=== PATIENT | female | born 1935 | race African-American/Black ===

== ENCOUNTER 2018-09-09 14:02 | Inpatient (IN) | payer MEDICARE, MEDICAID ==
[~2018-09-09] VITALS: Ht 167.6 cm; Wt 69.9 kg
[~2018-09-09 14:02] MED LIST: AMLO5TAB4 PO; CALC-1042 PO; CHOL100044 PO; FERR325T6 PO; IMAT100T2 PO; MEMA10TA2 PO
[2018-09-09 15:34] LABS: CHLORIDE 107 mEq/L (98-107)
[2018-09-09 16:22] LABS: BASOPHILS % 1.2 % (0.0-2.0); EOSINOPHILS % 1.5 % (0.0-5.0); HEMATOCRIT. 41.7 % (36.0-48.0); HEMOGLOBIN. 13.7 g/dL (12.0-16.0); LYMPHOCYTES % 17.9 % (20.0-50.0); MEAN CORPUSCULAR HEMOGLOBIN 29.8 pg (28.0-32.0); MONOCYTES % 14.3 % (2.0-8.0); NEUTROPHILS % 65.1 % (40.0-76.0); PLATELET 169 x1000/uL (130-400); RED BLOOD CELL COUNT 4.59 mill/uL (4.2-5.4); RED CELL DISTRIBUTION WIDTH 13.8 % (11.6-14.6)
[2018-09-09 16:30] LABS: INR 1.1; PARTIAL THROMBOPLASTIN TIME 24.7 sec (23.4-31.0); PROTHROMBIN TIME 10.9 sec (9.1-11.1)
[2018-09-09] MEDS ORDERED: ASPIRIN 81MG TABLET PO ONE (16:45)
[2018-09-09 16:53] LABS: CLARITY URINE CLEAR (CLEAR); COLOR URINE DARK YELLOW (YELLOW); KETONES URINE TRACE (NEGATIVE); LEUKOCYTE ESTERASE URINE NEGATIVE (NEGATIVE); NITRITE URINE NEGATIVE (NEGATIVE); OCCULT BLOOD URINE NEGATIVE (NEGATIVE); PH URINE 5.5 (4.5-8.0); PROTEIN URINE TRACE (NEGATIVE); SPECIFIC GRAVITY URINE 1.026 (1.005-1.030); UROBILINOGEN URINE 0.2 E.U./dL (0.2-1.0)
[2018-09-09] MEDS ORDERED: DOCUSATE SODIUM 100MG CAPSULE PO PRN (19:45)
[2018-09-09] MEDS ORDERED: MEMANTINE HCL 10MG TABLET PO SCH (19:45)
[2018-09-09] MEDS ORDERED: ACETAMINOPHEN 325MG TABLET PO PRN (19:45)
[2018-09-09] MEDS ORDERED: ENOXAPARIN 40MG/0.4ML SYR SUBCUT SCH (19:45)
[2018-09-09] MEDS ORDERED: ENOXAPARIN 40MG/0.4ML SYR SUBCUT NR (20:15)
[2018-09-09] MEDS ORDERED: SODIUM CHLORIDE 0.9% 1,000 ML IV ONE (20:15)
[2018-09-09] MEDS ORDERED: MEMANTINE HCL 10MG TABLET PO NR (20:30)
[2018-09-09 22:00] VITALS: BP 122/80
[2018-09-09] MEDS: SODIUM CHLORIDE 0.9% INJ 3ML FLUSH IVF SCH (23:31)
[2018-09-09] MEDS: FAMOTIDINE 20MG TABLET PO SCH (23:31)
[2018-09-10] VITALS (7 sets, daily range): BP systolic 116–141; BP diastolic 59–84
[2018-09-10] MEDS: SODIUM CHLORIDE 0.9% INJ 3ML FLUSH IVF SCH ×3 (06:10→21:02)
[2018-09-10 06:35] LABS: BASOPHILS % 1.2 % (0.0-2.0); EOSINOPHILS % 3.6 % (0.0-5.0); HEMATOCRIT. 40.6 % (36.0-48.0); HEMOGLOBIN. 13.3 g/dL (12.0-16.0); LYMPHOCYTES % 35.7 % (20.0-50.0); MEAN CORPUSCULAR VOLUME 91.5 fL (81.0-99.0); MONOCYTES % 9.7 % (2.0-8.0); NEUTROPHILS % 49.8 % (40.0-76.0); RED BLOOD CELL COUNT 4.44 mill/uL (4.2-5.4); RED CELL DISTRIBUTION WIDTH 13.9 % (11.6-14.6)
[2018-09-10 07:05] LABS: VITAMIN B12 SERUM 995 pg/mL (211-911)
[2018-09-10 07:12] LABS: FOLIC ACID (FOLATE) SERUM > 20.00 ng/mL (>5.38)
[2018-09-10 07:20] LABS: CHLORIDE 108 mEq/L (98-107)
[2018-09-10] MEDS: CHOLECALCIFEROL (D3) 1000 UNIT TABLET PO SCH (10:24)
[2018-09-10] MEDS: AMLODIPINE 5MG TABLET PO SCH (10:24)
[2018-09-10] MEDS: MEMANTINE HCL 10MG TABLET PO SCH ×2 (10:24→20:53)
[2018-09-10] MEDS: FAMOTIDINE 20MG TABLET PO SCH (20:53)
[2018-09-10] MEDS ORDERED: ENOXAPARIN 40MG/0.4ML SYR SUBCUT SCH (21:00)
[2018-09-11] VITALS: BP 134/81
[2018-09-11 04:00] VITALS: BP 126/68
[2018-09-11] MEDS: SODIUM CHLORIDE 0.9% INJ 3ML FLUSH IVF SCH (06:10)
[2018-09-11 08:00] VITALS: BP_SYST 130; BP_SYST 139; BP_SYST 141; BP_DIAS 70; BP_DIAS 81; BP_DIAS 85
[2018-09-11] MEDS: CHOLECALCIFEROL (D3) 1000 UNIT TABLET PO SCH (08:30)
[2018-09-11] MEDS: MEMANTINE HCL 10MG TABLET PO SCH (08:31)
[2018-09-11] MEDS: AMLODIPINE 5MG TABLET PO SCH (08:31)
== END 2018-09-11 09:40 | disposition home health service (06) | DRG 312 ==
LOC: ER 14:02 → 8WST 16:19 → EDBEDREQ 16:20 → ENRESERV 21:27
PROVIDERS: ADMIT Ophthalmology; ATTEND Ophthalmology
DX: R55 Syncope and collapse (principal); F03.90 Unspecified dementia, unspecified severity, without behavioral disturbance, psychotic disturbance, mood disturbance, and anxiety; I10 Essential (primary) hypertension; Z85.028 Personal history of other malignant neoplasm of stomach; Z86.011 Personal history of benign neoplasm of the brain
CPT/HCPCS: 36415; 71045; 80048; 82607; 82746; 83880; 84443; 84484; 93005; 97162; 99285; C1893; J1650

== ENCOUNTER 2018-09-21 15:53 | Inpatient (IN) | payer MEDICARE, MEDICAID ==
[~2018-09-21] VITALS: Ht 157.5 cm; Wt 64.0 kg
[~2018-09-21 15:53] MED LIST changes: -FERR325T6 PO
[2018-09-21 16:54] LABS: HEMATOCRIT. 42.6 % (36.0-48.0); HEMOGLOBIN. 13.7 g/dL (12.0-16.0); MEAN CORPUSCULAR HEMOGLOBIN 29.7 pg (28.0-32.0); MEAN PLATELET VOLUME 8.2 fl (7.4-10.4); PLATELET 193 x1000/uL (130-400); RED BLOOD CELL COUNT 4.63 mill/uL (4.2-5.4); RED CELL DISTRIBUTION WIDTH 14.2 % (11.6-14.6)
[2018-09-21 16:58] LABS: CHLORIDE 108 mEq/L (98-107)
[2018-09-21 16:59] LABS: INR 1.1; PARTIAL THROMBOPLASTIN TIME 26.1 sec (23.4-31.0); PROTHROMBIN TIME 11.2 sec (9.1-11.1)
[2018-09-21 17:17] LABS: NUCLEATED RED BLOOD CELLS 1 /100 WBC; PLATELET ESTIMATE NORMAL
[2018-09-21] MEDS ORDERED: ONDANSETRON HCL 4MG/2ML INJ IV PRN (18:45)
[2018-09-21 19:23] LABS: CLARITY URINE CLOUDY (CLEAR); COLOR URINE YELLOW (YELLOW); KETONES URINE NEGATIVE (NEGATIVE); LEUKOCYTE ESTERASE URINE 3+ (NEGATIVE); NITRITE URINE POSITIVE (NEGATIVE); OCCULT BLOOD URINE 1+ (NEGATIVE); PH URINE 6.5 (4.5-8.0); PROTEIN URINE TRACE (NEGATIVE); SPECIFIC GRAVITY URINE 1.009 (1.005-1.030); UROBILINOGEN URINE 0.2 E.U./dL (0.2-1.0)
[2018-09-22] VITALS (8 sets, daily range): BP systolic 125–151; BP diastolic 60–89
[2018-09-22] MEDS ORDERED: DEXT 5%/0.45% NACL KCL 20MEQ/L 1,000 ML IV SCH (03:00)
[2018-09-22 09:31] LABS: BASOPHILS % 1.3 % (0.0-2.0); EOSINOPHILS % 3.5 % (0.0-5.0); HEMATOCRIT. 42.8 % (36.0-48.0); HEMOGLOBIN. 14.1 g/dL (12.0-16.0); LYMPHOCYTES % 31.1 % (20.0-50.0); MEAN CORPUSCULAR HEMOGLOBIN 29.8 pg (28.0-32.0); MEAN CORPUSCULAR VOLUME 90.4 fL (81.0-99.0); MONOCYTES % 12.4 % (2.0-8.0); NEUTROPHILS % 51.7 % (40.0-76.0); PLATELET 226 x1000/uL (130-400); RED BLOOD CELL COUNT 4.73 mill/uL (4.2-5.4); RED CELL DISTRIBUTION WIDTH 13.9 % (11.6-14.6)
[2018-09-22 09:43] LABS: CHLORIDE 106 mEq/L (98-107)
[2018-09-22] MEDS: MEMANTINE HCL 10MG TABLET PO SCH ×2 (09:46→20:32)
[2018-09-22] MEDS: FAMOTIDINE 20MG TABLET PO SCH (09:46)
[2018-09-22] MEDS: AMLODIPINE 5MG TABLET PO SCH (09:46)
[2018-09-22] MEDS ORDERED: ENOXAPARIN 30MG/0.3ML SYR SUBCUT ONE (16:30)
[2018-09-22] MEDS ORDERED: HALOPERIDOL LACTATE 5MG/ML VIAL IM PRN (21:00)
[2018-09-23] VITALS: BP 112/71
[2018-09-23 06:54] VITALS: BP 131/64
[2018-09-23 08:00] VITALS: BP 150/88
[2018-09-23] MEDS ORDERED: ENOXAPARIN 30MG/0.3ML SYR SUBCUT SCH (09:00)
[2018-09-23] MEDS: FAMOTIDINE 20MG TABLET PO SCH (09:06)
[2018-09-23] MEDS: MEMANTINE HCL 10MG TABLET PO SCH (09:06)
[2018-09-23] MEDS: AMLODIPINE 5MG TABLET PO SCH (09:07)
[2018-09-23 10:43] VITALS: BP 150/88
[2018-09-23 12:00] VITALS: BP 119/75
== END 2018-09-23 13:30 | disposition home health service (06) | DRG 312 ==
LOC: ER 15:53 → 5WST 17:18 → EDBEDREQTM 17:31 → EDBEDREQ 17:31 → SUPCPDRO 21:37 → ENRESERV 21:39 → CANRESERV 21:39 → ENRESERV 23:30
PROVIDERS: ADMIT Internal Medicine Critical Care Medicine; ATTEND Internal Medicine Critical Care Medicine
DX: R55 Syncope and collapse (principal); F03.90 Unspecified dementia, unspecified severity, without behavioral disturbance, psychotic disturbance, mood disturbance, and anxiety; I10 Essential (primary) hypertension; Z85.028 Personal history of other malignant neoplasm of stomach
CPT/HCPCS: 36415; 71045; 80048; 83735; 83880; 84484; 87077; 87186; 93005; 97116; 97162; 97166; 99285; J1650

== ENCOUNTER 2018-12-22 15:05 | Inpatient (IN) | payer MEDICARE, MEDICAID ==
[~2018-12-22] VITALS: Ht 165.1 cm; Wt 64.0 kg
[~2018-12-22 15:05] MED LIST changes: -IMAT100T2 PO
[2018-12-22 16:13] LABS: BASOPHILS % 1.1 % (0.0-2.0); EOSINOPHILS % 3.9 % (0.0-5.0); HEMATOCRIT. 44.3 % (36.0-48.0); HEMOGLOBIN. 14.6 g/dL (12.0-16.0); LYMPHOCYTES % 27.1 % (20.0-50.0); MEAN CORPUSCULAR HEMOGLOBIN 29.9 pg (28.0-32.0); MEAN CORPUSCULAR VOLUME 90.7 fL (81.0-99.0); MEAN PLATELET VOLUME 8.5 fl (7.4-10.4); NEUTROPHILS % 58.9 % (40.0-76.0); PLATELET 227 x1000/uL (130-400); RED BLOOD CELL COUNT 4.88 mill/uL (4.2-5.4); RED CELL DISTRIBUTION WIDTH 13.6 % (11.6-14.6)
[2018-12-22 16:18] LABS: PARTIAL THROMBOPLASTIN TIME 24.5 sec (23.4-31.0); PROTHROMBIN TIME 10.7 sec (9.6-11.0)
[2018-12-22 16:50] LABS: CHLORIDE 109 mEq/L (98-107)
[2018-12-22] MEDS ORDERED: SODIUM CHLORIDE 0.9% 500 ML IV ONE (17:20)
[2018-12-22 19:45] LABS: CLARITY URINE CLOUDY (CLEAR); COLOR URINE YELLOW (YELLOW); KETONES URINE NEGATIVE (NEGATIVE); LEUKOCYTE ESTERASE URINE 3+ (NEGATIVE); NITRITE URINE NEGATIVE (NEGATIVE); OCCULT BLOOD URINE NEGATIVE (NEGATIVE); PROTEIN URINE NEGATIVE (NEGATIVE); SPECIFIC GRAVITY URINE 1.016 (1.005-1.030)
[2018-12-22 22:00] VITALS: BP 123/80
[2018-12-22 22:15] VITALS: BP 123/80
[2018-12-22] MEDS ORDERED: ACETAMINOPHEN 325MG TABLET PO PRN (22:15)
[2018-12-22] MEDS ORDERED: CEFTRIAXONE 1 G PREMIX 50 ML IV SCH (22:15)
[2018-12-22] MEDS ORDERED: DOCUSATE SODIUM 100MG CAPSULE PO PRN (22:15)
[2018-12-22] MEDS: MEMANTINE HCL 10MG TABLET PO SCH (23:58)
[2018-12-22 23:59] VITALS: BP 127/81
[2018-12-23] MEDS ORDERED: CEFTRIAXONE 1 G PREMIX 50 ML IV SCH (01:00)
[2018-12-23 03:56] VITALS: BP 165/87
[2018-12-23 04:45] VITALS: BP 131/70
[2018-12-23 07:20] LABS: BASOPHILS % 1.2 % (0.0-2.0); EOSINOPHILS % 3.8 % (0.0-5.0); HEMATOCRIT. 38.9 % (36.0-48.0); HEMOGLOBIN. 12.6 g/dL (12.0-16.0); LYMPHOCYTES % 29.6 % (20.0-50.0); MEAN CORPUSCULAR HEMOGLOBIN 29.5 pg (28.0-32.0); MEAN CORPUSCULAR VOLUME 90.7 fL (81.0-99.0); MEAN PLATELET VOLUME 8.2 fl (7.4-10.4); MONOCYTES % 10.1 % (2.0-8.0); NEUTROPHILS % 55.3 % (40.0-76.0); PLATELET 172 x1000/uL (130-400); RED BLOOD CELL COUNT 4.29 mill/uL (4.2-5.4); RED CELL DISTRIBUTION WIDTH 13.5 % (11.6-14.6)
[2018-12-23 07:56] LABS: CHLORIDE 109 mEq/L (98-107)
[2018-12-23] MEDS: MEMANTINE HCL 10MG TABLET PO SCH (08:31)
[2018-12-23] MEDS ORDERED: ENOXAPARIN 40MG/0.4ML SYR SUBCUT SCH (09:00)
[2018-12-23] MEDS ORDERED: CHOLECALCIFEROL (D3) 1000 UNIT TABLET PO SCH (09:00)
[2018-12-23 09:36] VITALS: BP_SYST 138; BP_SYST 150; BP_SYST 156; BP_DIAS 82; BP_DIAS 90; BP_DIAS 92
[2018-12-23 12:16] VITALS: BP 118/66
[2018-12-23] MEDS: SODIUM CHLORIDE 0.9% 1,000 ML IV SCH ×2 (13:53)
== END 2018-12-23 16:31 | disposition home health service (06) | DRG 689 ==
LOC: ER 15:05 → EDBEDREQ 15:40 → 6WST 17:40 → EDBEDREQ 17:43 → EDBEDREQTM 18:02 → ENRESERV 20:08
PROVIDERS: ADMIT Ophthalmology; ATTEND Ophthalmology
DX: N39.0 Urinary tract infection, site not specified (principal); G93.41 Metabolic encephalopathy; F03.90 Unspecified dementia, unspecified severity, without behavioral disturbance, psychotic disturbance, mood disturbance, and anxiety; I10 Essential (primary) hypertension; Z79.899 Other long term (current) drug therapy
CPT/HCPCS: 36415; 71045; 80048; 82962; 83605; 83880; 84484; 87077; 87186; 93005; 96374; 97162; 99285; J0696; J1650; J7030; J7040

== ENCOUNTER 2019-05-10 20:38 | Emergency (ER) | payer MEDICARE, MEDICAID ==
[~2019-05-10] VITALS: Ht 162.6 cm; Wt 54.0 kg
[2019-05-10 21:52] LABS: BASOPHILS % 0.8 % (0.0-2.0); EOSINOPHILS % 2.7 % (0.0-5.0); HEMATOCRIT. 41.1 % (36.0-48.0); HEMOGLOBIN. 13.6 g/dL (12.0-16.0); LYMPHOCYTES % 19.6 % (20.0-50.0); MEAN CORPUSCULAR HEMOGLOBIN 30.2 pg (28.0-32.0); MONOCYTES % 7.8 % (2.0-8.0); NEUTROPHILS % 69.1 % (40.0-76.0); PLATELET 169 x1000/uL (130-400); RED BLOOD CELL COUNT 4.51 mill/uL (4.2-5.4); RED CELL DISTRIBUTION WIDTH 13.9 % (11.6-14.6)
[2019-05-10 21:59] LABS: CHLORIDE 107 mEq/L (98-107)
[2019-05-10 22:05] LABS: INR 1.1; PARTIAL THROMBOPLASTIN TIME 26.6 sec (23.4-31.0)
[2019-05-10 22:07] LABS: LDL CHOLESTEROL 100 mg/dL (5-100)
[2019-05-10] MEDS ORDERED: ASPIRIN 325MG EC TABLET PO ONE (22:30)
[2019-05-10 23:02] LABS: CLARITY URINE CLEAR (CLEAR); COLOR URINE YELLOW (YELLOW); KETONES URINE NEGATIVE (NEGATIVE); LEUKOCYTE ESTERASE URINE 1+ (NEGATIVE); NITRITE URINE NEGATIVE (NEGATIVE); OCCULT BLOOD URINE NEGATIVE (NEGATIVE); PROTEIN URINE NEGATIVE (NEGATIVE); SPECIFIC GRAVITY URINE 1.019 (1.005-1.030)
[2019-05-10] MEDS ORDERED: CEFTRIAXONE 1 G PREMIX 50 ML IV ONE (23:15)
[2019-05-11 03:20] VITALS: BP 142/83
== END 2019-05-11 03:34 | disposition short-term general hospital (02) ==
LOC: ER 20:38 → CANBEDREQ 05-11 03:59
DX: R41.82 Altered mental status, unspecified (principal); N39.0 Urinary tract infection, site not specified; I10 Essential (primary) hypertension; F03.90 Unspecified dementia, unspecified severity, without behavioral disturbance, psychotic disturbance, mood disturbance, and anxiety; Z79.899 Other long term (current) drug therapy
CPT/HCPCS: 36415; 70450; 71045; 80053; 81003; 82962; 83721; 84484; 85025; 85610; 85730; 87086; 93005; 96374; 99291; J0696

== ENCOUNTER 2019-07-23 16:37 | Inpatient (IN) | payer MEDICAID, MEDICARE ==
[~2019-07-23] VITALS: Ht 162.6 cm; Wt 68.1 kg
[2019-07-23] MEDS ORDERED: SODIUM CHLORIDE 0.9% 1,000 ML IV ONE (18:49)
[2019-07-23 19:42] LABS: CHLORIDE 107 mEq/L (98-107)
[2019-07-23 19:46] LABS: ETHANOL BLOOD < 10 mg/dL
[2019-07-23 19:52] LABS: BASOPHILS % 0.9 % (0.0-2.0); EOSINOPHILS % 0.2 % (0.0-5.0); HEMATOCRIT. 40.8 % (36.0-48.0); HEMOGLOBIN. 13.6 g/dL (12.0-16.0); LYMPHOCYTES % 12.3 % (20.0-50.0); MEAN CORPUSCULAR HEMOGLOBIN 30.1 pg (28.0-32.0); MEAN CORPUSCULAR VOLUME 90.1 fL (81.0-99.0); MEAN PLATELET VOLUME 9.2 fl (7.4-10.4); MONOCYTES % 7.2 % (2.0-8.0); NEUTROPHILS % 79.4 % (40.0-76.0); PLATELET 164 x1000/uL (130-400); RED BLOOD CELL COUNT 4.53 mill/uL (4.2-5.4); RED CELL DISTRIBUTION WIDTH 13.3 % (11.6-14.6)
[2019-07-23] MEDS ORDERED: ASPIRIN 81MG TABLET PO ONE (20:30)
[2019-07-23] MEDS ORDERED: ENOXAPARIN 100MG/ML SYR SUBCUT ONE (20:30)
[2019-07-23] MEDS ORDERED: ENOXAPARIN 60MG/0.6ML SYR SUBCUT NR (20:45)
[2019-07-23] MEDS ORDERED: LORAZEPAM 2MG/ML CPJ IV ONE (21:45)
[2019-07-23] MEDS ORDERED: HALOPERIDOL LACTATE 5MG/ML VIAL IM ONE (23:15)
[2019-07-24] VITALS (12 sets, daily range): BP systolic 95–158; BP diastolic 62–99
[2019-07-24 03:45] LABS: CLARITY URINE CLOUDY (CLEAR); COLOR URINE DARK YELLOW (YELLOW); KETONES URINE TRACE (NEGATIVE); LEUKOCYTE ESTERASE URINE NEGATIVE (NEGATIVE); NITRITE URINE NEGATIVE (NEGATIVE); OCCULT BLOOD URINE NEGATIVE (NEGATIVE); PH URINE 5.5 (4.5-8.0); PROTEIN URINE TRACE (NEGATIVE); SPECIFIC GRAVITY URINE 1.028 (1.005-1.030)
[2019-07-24 04:05] LABS: *AMPHETAMINES SCREEN URINE NEGATIVE (NEGATIVE); *BARBITURATES SCREEN URINE NEGATIVE (NEGATIVE); *BENZODIAZEPINES SCREEN URINE NEGATIVE (NEGATIVE); *COCAINE SCREEN URINE NEGATIVE (NEGATIVE); CANNABINOID URINE SCREEN NEGATIVE (NEGATIVE); METHADONE URINE SCREEN NEGATIVE (NEGATIVE); OPIATES URINE SCREEN NEGATIVE (NEGATIVE); PHENCYCLIDINE URINE SCREEN NEGATIVE (NEGATIVE)
[2019-07-24] MEDS ORDERED: VIT1TABL86 MT (04:36)
[2019-07-24] MEDS ORDERED: MEMA5TAB7 MT (04:36)
[2019-07-24] MEDS: ASPIRIN 325MG EC TABLET PO SCH (09:36)
[2019-07-24] MEDS: CARVEDILOL 3.125 MG TABLET PO SCH ×2 (09:36→20:24)
[2019-07-24] MEDS: NITROGLYCERIN OINT 1GM/INCH UDPKT TD SCH ×4 (09:36→20:32)
[2019-07-24] MEDS: ENOXAPARIN 40MG/0.4ML SYR SUBCUT SCH ×2 (09:37→20:24)
[2019-07-24 11:26] LABS: EOSINOPHILS % 1.8 % (0.0-5.0); HEMATOCRIT. 37.9 % (36.0-48.0); HEMOGLOBIN. 12.6 g/dL (12.0-16.0); LYMPHOCYTES % 23.5 % (20.0-50.0); MEAN CORPUSCULAR HEMOGLOBIN 29.9 pg (28.0-32.0); MEAN CORPUSCULAR VOLUME 90.1 fL (81.0-99.0); MEAN PLATELET VOLUME 8.4 fl (7.4-10.4); NEUTROPHILS % 64.7 % (40.0-76.0); PLATELET 153 x1000/uL (130-400); RED CELL DISTRIBUTION WIDTH 13.3 % (11.6-14.6)
[2019-07-24 11:33] LABS: CHLORIDE 110 mEq/L (98-107)
[2019-07-24] MEDS ORDERED: CLONIDINE 0.1MG TABLET PO PRN (13:45)
[2019-07-24] MEDS: AMLODIPINE 2.5MG TABLET PO SCH ×2 (14:00→20:27)
[2019-07-24] MEDS: ATORVASTATIN CALCIUM 40MG TABLET PO SCH (20:24)
[2019-07-25] VITALS (13 sets, daily range): BP systolic 114–152; BP diastolic 78–106
[2019-07-25 07:09] LABS: BASOPHILS % 0.9 % (0.0-2.0); EOSINOPHILS % 3.2 % (0.0-5.0); HEMATOCRIT. 40.3 % (36.0-48.0); HEMOGLOBIN. 13.3 g/dL (12.0-16.0); LYMPHOCYTES % 21.5 % (20.0-50.0); MEAN CORPUSCULAR HEMOGLOBIN 29.5 pg (28.0-32.0); MEAN CORPUSCULAR VOLUME 89.4 fL (81.0-99.0); MONOCYTES % 9.6 % (2.0-8.0); NEUTROPHILS % 64.8 % (40.0-76.0); PLATELET 166 x1000/uL (130-400); RED BLOOD CELL COUNT 4.51 mill/uL (4.2-5.4); RED CELL DISTRIBUTION WIDTH 13.2 % (11.6-14.6)
[2019-07-25 07:11] LABS: CHLORIDE 109 mEq/L (98-107)
[2019-07-25 07:21] LABS: LDL CHOLESTEROL 109 mg/dL (5-100)
[2019-07-25 07:22] LABS: CREATINE KINASE 257 IU/L (26-192); CREATINE KINASE MB FRACTION 2.8 ng/mL (0.5-3.6); HDL CHOLESTEROL 71 mg/dL (40-59)
[2019-07-25 07:25] LABS: D-DIMER 10.84 mg/L FEU (<0.50); INR 1.1; PROTHROMBIN TIME 11.4 sec (9.6-11.0)
[2019-07-25] MEDS: ASPIRIN 325MG EC TABLET PO SCH (10:08)
[2019-07-25] MEDS: NITROGLYCERIN OINT 1GM/INCH UDPKT TD SCH ×4 (10:08→21:18)
[2019-07-25] MEDS: AMLODIPINE 2.5MG TABLET PO SCH ×2 (10:09→21:18)
[2019-07-25] MEDS: CARVEDILOL 3.125 MG TABLET PO SCH ×2 (10:09→21:18)
[2019-07-25] MEDS: ENOXAPARIN 40MG/0.4ML SYR SUBCUT SCH ×2 (10:10→21:19)
[2019-07-25] MEDS: ATORVASTATIN CALCIUM 40MG TABLET PO SCH (21:17)
[2019-07-26] VITALS (13 sets, daily range): BP systolic 112–169; BP diastolic 63–98
[2019-07-26 07:01] LABS: BASOPHILS % 0.8 % (0.0-2.0); EOSINOPHILS % 2.7 % (0.0-5.0); HEMATOCRIT. 39.5 % (36.0-48.0); HEMOGLOBIN. 13.2 g/dL (12.0-16.0); LYMPHOCYTES % 24.5 % (20.0-50.0); MEAN CORPUSCULAR HEMOGLOBIN 29.9 pg (28.0-32.0); MEAN CORPUSCULAR VOLUME 89.8 fL (81.0-99.0); MEAN PLATELET VOLUME 9.1 fl (7.4-10.4); MONOCYTES % 11.6 % (2.0-8.0); NEUTROPHILS % 60.4 % (40.0-76.0); PLATELET 169 x1000/uL (130-400); RED CELL DISTRIBUTION WIDTH 13.2 % (11.6-14.6)
[2019-07-26 07:28] LABS: CHLORIDE 107 mEq/L (98-107)
[2019-07-26] MEDS: ASPIRIN 325MG EC TABLET PO SCH (08:59)
[2019-07-26] MEDS: NITROGLYCERIN OINT 1GM/INCH UDPKT TD SCH ×4 (08:59→21:31)
[2019-07-26] MEDS: CARVEDILOL 3.125 MG TABLET PO SCH ×2 (09:00→21:31)
[2019-07-26] MEDS: AMLODIPINE 2.5MG TABLET PO SCH ×2 (09:00→21:00)
[2019-07-26] MEDS: ENOXAPARIN 40MG/0.4ML SYR SUBCUT SCH (09:01)
[2019-07-26] MEDS ORDERED: IOHEXOL-350 100 ML BOTTLE ONE (11:51)
[2019-07-26] MEDS: ENOXAPARIN 60MG/0.6ML SYR SUBCUT SCH (18:26)
[2019-07-26] MEDS: ATORVASTATIN CALCIUM 40MG TABLET PO SCH (21:31)
[2019-07-27] VITALS (13 sets, daily range): BP systolic 99–170; BP diastolic 42–97
[2019-07-27] MEDS ORDERED: RISPERIDONE 0.5MG TABLET PO SCH (02:45)
[2019-07-27] MEDS: ENOXAPARIN 60MG/0.6ML SYR SUBCUT SCH ×2 (06:00→18:06)
[2019-07-27 06:29] LABS: CHLORIDE 109 mEq/L (98-107)
[2019-07-27 06:36] LABS: BASOPHILS % 0.9 % (0.0-2.0); EOSINOPHILS % 5.6 % (0.0-5.0); HEMATOCRIT. 36.8 % (36.0-48.0); HEMOGLOBIN. 12.4 g/dL (12.0-16.0); LYMPHOCYTES % 22.3 % (20.0-50.0); MEAN CORPUSCULAR HEMOGLOBIN 30.2 pg (28.0-32.0); MEAN CORPUSCULAR VOLUME 89.6 fL (81.0-99.0); MEAN PLATELET VOLUME 8.9 fl (7.4-10.4); MONOCYTES % 12.3 % (2.0-8.0); NEUTROPHILS % 58.9 % (40.0-76.0); PLATELET 169 x1000/uL (130-400); RED BLOOD CELL COUNT 4.11 mill/uL (4.2-5.4); RED CELL DISTRIBUTION WIDTH 13.3 % (11.6-14.6)
[2019-07-27] MEDS: AMLODIPINE 2.5MG TABLET PO SCH ×2 (08:43→21:24)
[2019-07-27] MEDS: NITROGLYCERIN OINT 1GM/INCH UDPKT TD SCH ×4 (08:43→21:26)
[2019-07-27] MEDS: CARVEDILOL 3.125 MG TABLET PO SCH ×2 (08:44→21:22)
[2019-07-27] MEDS: APIXABAN 5 MG TABLET PO SCH (20:39)
[2019-07-27] MEDS: ATORVASTATIN CALCIUM 40MG TABLET PO SCH (21:23)
[2019-07-28] VITALS (13 sets, daily range): BP systolic 98–140; BP diastolic 29–85
[2019-07-28 04:27] LABS: BASOPHILS % 0.6 % (0.0-2.0); HEMATOCRIT. 33.9 % (36.0-48.0); HEMOGLOBIN. 11.3 g/dL (12.0-16.0); LYMPHOCYTES % 23.1 % (20.0-50.0); MEAN CORPUSCULAR VOLUME 89.7 fL (81.0-99.0); MEAN PLATELET VOLUME 8.2 fl (7.4-10.4); MONOCYTES % 11.4 % (2.0-8.0); NEUTROPHILS % 58.9 % (40.0-76.0); PLATELET 189 x1000/uL (130-400); RED BLOOD CELL COUNT 3.78 mill/uL (4.2-5.4); RED CELL DISTRIBUTION WIDTH 13.1 % (11.6-14.6)
[2019-07-28 04:35] LABS: CHLORIDE 109 mEq/L (98-107)
[2019-07-28] MEDS: APIXABAN 5 MG TABLET PO SCH ×2 (08:11→17:14)
[2019-07-28] MEDS: NITROGLYCERIN OINT 1GM/INCH UDPKT TD SCH ×4 (08:12→20:23)
[2019-07-28] MEDS: CARVEDILOL 3.125 MG TABLET PO SCH ×2 (08:13→20:24)
[2019-07-28] MEDS: AMLODIPINE 2.5MG TABLET PO SCH ×2 (08:13→20:24)
[2019-07-28 16:00] LABS: BG BASE EXCESS 1.7 mmol/L (-2.0-2.0); BG CARBOXYHEMOGLOBIN 1.1 % (0.5-1.5); BG FRACTION INSPIRED OXYGEN 21; BG HCO3 ACT 25.4 mmol/L (22.0-26.0); BG METHEMOGLOBIN 0.3 % (0.0-1.5); BG OXYGEN SATURATION 93.9 % (92.0-98.5); BG OXYHEMOGLOBIN 92.6 % (94.0-97.0); BG PCO2 36.9 mmHg (35.0-45.0); BG PH 7.456 (7.350-7.450); BG PO2 69.3 mmHg (75.0-100.0); BG SAMPLE SITE RIGHT RADIAL; BG TOTAL HEMOGLOBIN 12.2 g/dL (12.0-18.0); BG VENT MODE ROOM AIR
[2019-07-28] MEDS ORDERED: IPRATROPIUM/ALBUTEROL 0.5-3(2.5)MG/3ML NEB HHN PRN (18:00)
[2019-07-28] MEDS ORDERED: HYDROCODONE/ACETAMINOPHEN 5/325MG TABLET PO PRN (18:00)
[2019-07-28] MEDS: ATORVASTATIN CALCIUM 40MG TABLET PO SCH (20:23)
[2019-07-28] MEDS: DIPHENHYDRAMINE 50MG/ML VIAL IV PRN (20:35)
[2019-07-29] VITALS (12 sets, daily range): BP systolic 118–161; BP diastolic 54–98
[2019-07-29 06:41] LABS: BASOPHILS % 0.9 % (0.0-2.0); EOSINOPHILS % 4.7 % (0.0-5.0); HEMATOCRIT. 35.6 % (36.0-48.0); HEMOGLOBIN. 11.8 g/dL (12.0-16.0); MEAN CORPUSCULAR VOLUME 90.7 fL (81.0-99.0); MEAN PLATELET VOLUME 9.1 fl (7.4-10.4); MONOCYTES % 12.7 % (2.0-8.0); NEUTROPHILS % 55.7 % (40.0-76.0); PLATELET 202 x1000/uL (130-400); RED BLOOD CELL COUNT 3.93 mill/uL (4.2-5.4); RED CELL DISTRIBUTION WIDTH 13.6 % (11.6-14.6)
[2019-07-29 06:54] LABS: CHLORIDE 110 mEq/L (98-107)
[2019-07-29] MEDS: NITROGLYCERIN OINT 1GM/INCH UDPKT TD SCH ×4 (08:48→21:47)
[2019-07-29] MEDS: AMLODIPINE 2.5MG TABLET PO SCH ×2 (08:49→21:46)
[2019-07-29] MEDS: APIXABAN 5 MG TABLET PO SCH ×2 (08:49→16:41)
[2019-07-29] MEDS: CARVEDILOL 3.125 MG TABLET PO SCH ×2 (08:49→21:47)
[2019-07-29] MEDS: ATORVASTATIN CALCIUM 40MG TABLET PO SCH (21:47)
[2019-07-30] VITALS (9 sets, daily range): BP systolic 102–160; BP diastolic 32–94
[2019-07-30 08:56] LABS: BASOPHILS % 0.6 % (0.0-2.0); EOSINOPHILS % 3.5 % (0.0-5.0); HEMOGLOBIN. 11.5 g/dL (12.0-16.0); LYMPHOCYTES % 20.1 % (20.0-50.0); MEAN CORPUSCULAR HEMOGLOBIN 29.7 pg (28.0-32.0); MEAN CORPUSCULAR VOLUME 90.6 fL (81.0-99.0); MEAN PLATELET VOLUME 8.5 fl (7.4-10.4); MONOCYTES % 11.5 % (2.0-8.0); NEUTROPHILS % 64.3 % (40.0-76.0); PLATELET 222 x1000/uL (130-400); RED BLOOD CELL COUNT 3.86 mill/uL (4.2-5.4); RED CELL DISTRIBUTION WIDTH 13.5 % (11.6-14.6)
[2019-07-30 09:05] LABS: CHLORIDE 109 mEq/L (98-107)
[2019-07-30] MEDS: APIXABAN 5 MG TABLET PO SCH ×2 (09:36→18:02)
[2019-07-30] MEDS: NITROGLYCERIN OINT 1GM/INCH UDPKT TD SCH ×4 (09:42→22:04)
[2019-07-30] MEDS: AMLODIPINE 2.5MG TABLET PO SCH ×2 (09:42→22:03)
[2019-07-30] MEDS: CARVEDILOL 3.125 MG TABLET PO SCH ×2 (09:43→22:04)
[2019-07-30] MEDS: CEFTRIAXONE 1 G PREMIX 50 ML IV SCH (15:21)
[2019-07-30] MEDS: ATORVASTATIN CALCIUM 40MG TABLET PO SCH (22:03)
[2019-07-31] VITALS: BP 147/98
[2019-07-31 04:00] VITALS: BP 148/60
[2019-07-31 08:00] VITALS: BP 130/73
[2019-07-31 08:07] LABS: HEMATOCRIT 33.9 % (36.0-48.0); HEMOGLOBIN 11.6 g/dL (12.0-16.0); MEAN CORPUSCULAR HEMOGLOBIN 30.9 pg (28.0-32.0); MEAN CORPUSCULAR VOLUME 89.8 fL (81.0-99.0); PLATELET 247 x1000/uL (130-400); RED BLOOD CELL COUNT 3.77 mill/uL (4.2-5.4); RED CELL DISTRIBUTION WIDTH 13.9 % (11.6-14.6)
[2019-07-31 08:58] LABS: CHLORIDE 110 mEq/L (98-107)
[2019-07-31] MEDS: AMLODIPINE 2.5MG TABLET PO SCH ×2 (09:00→21:00)
[2019-07-31] MEDS: NITROGLYCERIN OINT 1GM/INCH UDPKT TD SCH ×4 (09:42→22:02)
[2019-07-31] MEDS: CARVEDILOL 3.125 MG TABLET PO SCH ×2 (09:42→22:03)
[2019-07-31] MEDS: APIXABAN 5 MG TABLET PO SCH ×2 (09:44→17:27)
[2019-07-31 12:00] VITALS: BP 111/73
[2019-07-31] MEDS: CEFTRIAXONE 1 G PREMIX 50 ML IV SCH (15:09)
[2019-07-31 16:00] VITALS: BP 104/64
[2019-07-31 20:00] VITALS: BP 126/81
[2019-07-31] MEDS: DIPHENHYDRAMINE 50MG/ML VIAL IV PRN (22:01)
[2019-07-31] MEDS: ATORVASTATIN CALCIUM 40MG TABLET PO SCH (22:03)
[2019-08-01] VITALS: BP 148/88
[2019-08-01 04:00] VITALS: BP 167/68
[2019-08-01 08:00] VITALS: BP 155/80
[2019-08-01] MEDS: AMLODIPINE 2.5MG TABLET PO SCH ×2 (09:48→20:42)
[2019-08-01] MEDS: CARVEDILOL 3.125 MG TABLET PO SCH ×2 (09:48→20:42)
[2019-08-01] MEDS: NITROGLYCERIN OINT 1GM/INCH UDPKT TD SCH ×4 (09:48→20:42)
[2019-08-01] MEDS: APIXABAN 5 MG TABLET PO SCH ×2 (09:51→16:18)
[2019-08-01 12:00] VITALS: BP 119/58
[2019-08-01] MEDS: CEFTRIAXONE 1 G PREMIX 50 ML IV SCH (14:33)
[2019-08-01 15:49] VITALS: BP 105/74
[2019-08-01 20:00] VITALS: BP 123/76
[2019-08-01] MEDS: ATORVASTATIN CALCIUM 40MG TABLET PO SCH (20:41)
[2019-08-02] VITALS (7 sets, daily range): BP systolic 123–147; BP diastolic 72–94
[2019-08-02] MEDS: NITROGLYCERIN OINT 1GM/INCH UDPKT TD SCH ×3 (08:57→16:10)
[2019-08-02] MEDS: AMLODIPINE 2.5MG TABLET PO SCH (08:57)
[2019-08-02] MEDS: APIXABAN 5 MG TABLET PO SCH ×2 (08:58→16:09)
[2019-08-02] MEDS: CARVEDILOL 3.125 MG TABLET PO SCH (09:14)
[2019-08-02] MEDS ORDERED: LACTULOSE 20G/30ML UDC PO PRN (13:00)
[2019-08-02] MEDS ORDERED: LORAZEPAM 2MG/ML CPJ IV PRN (13:00)
[2019-08-02] MEDS ORDERED: HYDRALAZINE 20MG/ML VIAL IV PRN (13:00)
[2019-08-02 15:46] LABS: HEMATOCRIT 32.5 % (36.0-48.0); HEMOGLOBIN 11.2 g/dL (12.0-16.0); MEAN CORPUSCULAR VOLUME 90.1 fL (81.0-99.0); PLATELET 267 x1000/uL (130-400); RED BLOOD CELL COUNT 3.61 mill/uL (4.2-5.4); RED CELL DISTRIBUTION WIDTH 14.1 % (11.6-14.6)
[2019-08-02 15:51] LABS: CHLORIDE 109 mEq/L (98-107)
[2019-08-02] MEDS: CEFTRIAXONE 1 G PREMIX 50 ML IV SCH (16:10)
[2019-08-02] MEDS ORDERED: LEVOFLOXACIN 500MG TABLET PO SCH (18:30)
[2019-08-04] MEDS ORDERED: APIXABAN 5 MG TABLET PO SCH (09:00)
== END 2019-08-02 20:43 | DRG 280 ==
LOC: ER 16:37 → MERGE 21:26 → 5EST 21:26 → EDBEDREQTM 21:29 → EDBEDREQSVC 21:29 → EDBEDREQ 21:29 → 5EST 07-24 02:32
PROVIDERS: ADMIT Internal Medicine; ATTEND Internal Medicine
PROC: 02H633Z Insertion of Infusion Device into Right Atrium, Percutaneous Approach (ICD-10-PCS; principal; 2019-07-26)
PROC: B548ZZA Ultrasonography of Superior Vena Cava, Guidance (ICD-10-PCS; 2019-07-26)
DX: I21.4 Non-ST elevation (NSTEMI) myocardial infarction (principal); I26.99 Other pulmonary embolism without acute cor pulmonale; G93.40 Encephalopathy, unspecified; N39.0 Urinary tract infection, site not specified; E11.9 Type 2 diabetes mellitus without complications; E78.5 Hyperlipidemia, unspecified; I10 Essential (primary) hypertension; F03.90 Unspecified dementia, unspecified severity, without behavioral disturbance, psychotic disturbance, mood disturbance, and anxiety; I77.810 Thoracic aortic ectasia; D32.9 Benign neoplasm of meninges, unspecified; D64.9 Anemia, unspecified; E04.2 Nontoxic multinodular goiter; E86.0 Dehydration; Z78.1 Physical restraint status; Z79.01 Long term (current) use of anticoagulants; Z86.718 Personal history of other venous thrombosis and embolism; Z79.899 Other long term (current) drug therapy
CPT/HCPCS: 36415; 36600; 71045; 71275; 76937; 80048; 80053; 80061; 80305; 80320; 81003; 82375; 82550; 82553; 82805; 83036; 83735; 84443; 84484; 85025; 85027; 85379; 93005; 93306; 93970; 97116; 97162; 99291; A6261; C1725; J0696; J1200; J1630; J1650; J2060; J7030; Q9967; G0480

== ENCOUNTER 2019-09-06 15:49 | Inpatient (IN) | payer MEDICARE, MEDICAID ==
[~2019-09-06] VITALS: Ht 165.1 cm; Wt 58.1 kg
[2019-09-06] MEDS ORDERED: SODIUM CHLORIDE 0.9% 1,000 ML IV ONE (16:19)
[2019-09-06 17:00] LABS: INR 1.2
[2019-09-06 17:01] LABS: CHLORIDE 109 mEq/L (98-107); EOSINOPHILS % 3.5 % (0.0-5.0); HEMATOCRIT. 47.3 % (36.0-48.0); HEMOGLOBIN. 15.3 g/dL (12.0-16.0); LYMPHOCYTES % 28.6 % (20.0-50.0); MEAN CORPUSCULAR HEMOGLOBIN 29.6 pg (28.0-32.0); MEAN CORPUSCULAR VOLUME 91.2 fL (81.0-99.0); MEAN PLATELET VOLUME 8.1 fl (7.4-10.4); NEUTROPHILS % 56.9 % (40.0-76.0); PLATELET 260 x1000/uL (130-400); RED BLOOD CELL COUNT 5.18 mill/uL (4.2-5.4); RED CELL DISTRIBUTION WIDTH 13.9 % (11.6-14.6)
[2019-09-06 19:42] LABS: CLARITY URINE CLEAR (CLEAR); COLOR URINE DARK YELLOW (YELLOW); KETONES URINE NEGATIVE (NEGATIVE); LEUKOCYTE ESTERASE URINE 1+ (NEGATIVE); NITRITE URINE NEGATIVE (NEGATIVE); OCCULT BLOOD URINE NEGATIVE (NEGATIVE); PH URINE 5.5 (4.5-8.0); PROTEIN URINE TRACE (NEGATIVE); SPECIFIC GRAVITY URINE 1.022 (1.005-1.030)
[2019-09-06] MEDS ORDERED: CEFTRIAXONE 1 G PREMIX 50 ML IV ONE (21:15)
[2019-09-07 03:30] VITALS: BP 149/93
[2019-09-07] MEDS ORDERED: DEXTROSE 50% WATER 50ML SYRINGE IV PRN (06:15)
[2019-09-07] MEDS ORDERED: CLONIDINE 0.1MG TABLET PO PRN (06:15)
[2019-09-07] MEDS: BLOOD SUGAR DIAGNOSTIC STRIP TEST SCH ×4 (06:44→21:47)
[2019-09-07] MEDS: INSULIN LISPRO 100 UNITS/ML SUBCUT SCH ×4 (07:50→21:00)
[2019-09-07 08:00] VITALS: BP 160/86
[2019-09-07] MEDS: SULFAMETHOXAZOLE/TRIMETHOPRIM 400/80MG TAB PO SCH ×2 (08:28→21:47)
[2019-09-07] MEDS: APIXABAN 5 MG TABLET PO SCH ×2 (10:26→17:54)
[2019-09-07] MEDS: CARVEDILOL 3.125 MG TABLET PO SCH ×2 (10:26→21:47)
[2019-09-07] MEDS: AMLODIPINE 5MG TABLET PO SCH (10:26)
[2019-09-07 12:37] LABS: CHLORIDE 113 mEq/L (98-107)
[2019-09-07 16:00] VITALS: BP 115/62
[2019-09-07 20:00] VITALS: BP 140/78
[2019-09-07] MEDS ORDERED: IOHEXOL-350 100 ML BOTTLE ONE (23:05)
[2019-09-08] VITALS: BP 147/86
[2019-09-08 04:00] VITALS: BP 131/83
[2019-09-08] MEDS: INSULIN LISPRO 100 UNITS/ML SUBCUT SCH ×4 (06:42→21:00)
[2019-09-08] MEDS: BLOOD SUGAR DIAGNOSTIC STRIP TEST SCH ×4 (06:42→21:15)
[2019-09-08 07:52] LABS: CHLORIDE 112 mEq/L (98-107)
[2019-09-08 08:00] VITALS: BP 131/77
[2019-09-08 08:05] LABS: HEMATOCRIT. 40.1 % (36.0-48.0); HEMOGLOBIN. 13.3 g/dL (12.0-16.0); LYMPHOCYTES % 28.5 % (20.0-50.0); MEAN CORPUSCULAR HEMOGLOBIN 30.1 pg (28.0-32.0); MEAN CORPUSCULAR VOLUME 91.1 fL (81.0-99.0); MEAN PLATELET VOLUME 8.7 fl (7.4-10.4); MONOCYTES % 10.5 % (2.0-8.0); PLATELET 210 x1000/uL (130-400); RED CELL DISTRIBUTION WIDTH 13.8 % (11.6-14.6)
[2019-09-08] MEDS: CARVEDILOL 3.125 MG TABLET PO SCH (09:00)
[2019-09-08] MEDS: APIXABAN 5 MG TABLET PO SCH ×2 (09:55→16:57)
[2019-09-08] MEDS: AMLODIPINE 5MG TABLET PO SCH (09:55)
[2019-09-08] MEDS: SULFAMETHOXAZOLE/TRIMETHOPRIM 400/80MG TAB PO SCH ×2 (09:55→21:15)
[2019-09-08 20:00] VITALS: BP 115/76
[2019-09-09] VITALS: BP 143/73
[2019-09-09 04:00] VITALS: BP 134/77
[2019-09-09] MEDS: BLOOD SUGAR DIAGNOSTIC STRIP TEST SCH (06:39)
[2019-09-09] MEDS: INSULIN LISPRO 100 UNITS/ML SUBCUT SCH (06:40)
[2019-09-09 08:00] VITALS: BP 134/76
[2019-09-09 08:08] LABS: BASOPHILS % 1.2 % (0.0-2.0); EOSINOPHILS % 6.5 % (0.0-5.0); HEMATOCRIT. 37.5 % (36.0-48.0); HEMOGLOBIN. 12.5 g/dL (12.0-16.0); LYMPHOCYTES % 35.2 % (20.0-50.0); MEAN CORPUSCULAR HEMOGLOBIN 30.1 pg (28.0-32.0); MEAN CORPUSCULAR VOLUME 90.2 fL (81.0-99.0); MEAN PLATELET VOLUME 8.4 fl (7.4-10.4); MONOCYTES % 10.7 % (2.0-8.0); NEUTROPHILS % 46.4 % (40.0-76.0); PLATELET 232 x1000/uL (130-400); RED BLOOD CELL COUNT 4.16 mill/uL (4.2-5.4); RED CELL DISTRIBUTION WIDTH 13.8 % (11.6-14.6)
[2019-09-09] MEDS: APIXABAN 5 MG TABLET PO SCH (08:46)
[2019-09-09 10:23] VITALS: BP_SYST 133; BP_SYST 153; BP_DIAS 107; BP_DIAS 78
[2019-09-09 12:00] VITALS: BP 133/78
[2019-09-09 14:54] LABS: CHLORIDE 113 mEq/L (98-107)
== END 2019-09-09 15:25 | disposition home or self-care (01) | DRG 73 ==
LOC: ER 15:49 → MERGE 22:41 → 6EST 22:41 → EDBEDREQ 22:47 → EDBEDREQTM 22:47 → EDBEDREQSVC 22:47 → ENRESERV 09-07 03:07 → 5WST 09-07 10:57
PROVIDERS: ADMIT Internal Medicine Critical Care Medicine; ATTEND Internal Medicine Critical Care Medicine
DX: G90.8 Other disorders of autonomic nervous system (principal); G93.41 Metabolic encephalopathy; I27.82 Chronic pulmonary embolism; N30.90 Cystitis, unspecified without hematuria; E11.9 Type 2 diabetes mellitus without complications; E78.5 Hyperlipidemia, unspecified; R00.1 Bradycardia, unspecified; F03.90 Unspecified dementia, unspecified severity, without behavioral disturbance, psychotic disturbance, mood disturbance, and anxiety; R55 Syncope and collapse; I11.9 Hypertensive heart disease without heart failure; Z79.01 Long term (current) use of anticoagulants; Z86.011 Personal history of benign neoplasm of the brain; Z87.440 Personal history of urinary (tract) infections
CPT/HCPCS: 36415; 71045; 71275; 80048; 80053; 81003; 82962; 83036; 83735; 84443; 84484; 85025; 85379; 93005; 93306; 99285; J0696; J1815; J7030; Q9967

== ENCOUNTER 2019-09-26 15:26 | Inpatient (IN) | payer MEDICARE, MEDICAID ==
[~2019-09-26] VITALS: Ht 165.1 cm; Wt 57.2 kg
[2019-09-26] MEDS ORDERED: SODIUM CHLORIDE 0.9% 500 ML IV ONE (15:57)
[2019-09-26 16:33] LABS: CHLORIDE 112 mEq/L (98-107)
[2019-09-26 16:36] LABS: BASOPHILS % 1.5 % (0.0-2.0); HEMATOCRIT. 41.6 % (36.0-48.0); HEMOGLOBIN. 13.8 g/dL (12.0-16.0); LYMPHOCYTES % 25.9 % (20.0-50.0); MEAN CORPUSCULAR HEMOGLOBIN 29.9 pg (28.0-32.0); MEAN CORPUSCULAR VOLUME 90.1 fL (81.0-99.0); MEAN PLATELET VOLUME 8.4 fl (7.4-10.4); MONOCYTES % 9.4 % (2.0-8.0); NEUTROPHILS % 57.2 % (40.0-76.0); PLATELET 169 x1000/uL (130-400); RED BLOOD CELL COUNT 4.61 mill/uL (4.2-5.4); RED CELL DISTRIBUTION WIDTH 13.6 % (11.6-14.6)
[2019-09-27] MEDS ORDERED: LEVOFLOXACIN 500MG PREMIX 100 ML IV SCH ×2 (03:15→06:00)
[2019-09-27] MEDS ORDERED: DOCUSATE SODIUM 100MG CAPSULE PO PRN (03:15)
[2019-09-27] MEDS ORDERED: ACETAMINOPHEN 325MG TABLET PO PRN (03:15)
[2019-09-27 03:50] LABS: BASOPHILS % 1.1 % (0.0-2.0); EOSINOPHILS % 3.6 % (0.0-5.0); HEMOGLOBIN. 14.1 g/dL (12.0-16.0); LYMPHOCYTES % 33.8 % (20.0-50.0); MEAN CORPUSCULAR HEMOGLOBIN 30.3 pg (28.0-32.0); MEAN CORPUSCULAR VOLUME 90.2 fL (81.0-99.0); MEAN PLATELET VOLUME 8.5 fl (7.4-10.4); NEUTROPHILS % 53.5 % (40.0-76.0); PLATELET 154 x1000/uL (130-400); RED BLOOD CELL COUNT 4.66 mill/uL (4.2-5.4); RED CELL DISTRIBUTION WIDTH 13.9 % (11.6-14.6)
[2019-09-27] MEDS ORDERED: MEMANTINE HCL 10MG TABLET PO SCH (06:00)
[2019-09-27] MEDS: SODIUM CHLORIDE 0.9% INJ 3ML FLUSH IVF SCH ×2 (07:30→13:42)
[2019-09-27 09:00] VITALS: BP 141/69
[2019-09-27] MEDS ORDERED: AMLODIPINE 5MG TABLET PO SCH (10:00)
[2019-09-27] MEDS ORDERED: CHOLECALCIFEROL (D3) 1000 UNIT TABLET PO SCH (10:00)
[2019-09-27] MEDS ORDERED: CALCIUM CARBONATE 1250MG TABLET (500MG ELEMENTAL CALCIUM) PO SCH (10:00)
[2019-09-27] MEDS ORDERED: ENOXAPARIN 60MG/0.6ML SYR SUBCUT SCH ×2 (10:00→21:00)
[2019-09-27 11:30] VITALS: BP 141/69
[2019-09-27 12:00] VITALS: BP 123/73
[2019-09-27] MEDS ORDERED: IOHEXOL-350 100 ML BOTTLE ONE (14:46)
[2019-09-27 15:36] LABS: INR 1.2; PROTHROMBIN TIME 13.4 sec (9.6-11.0)
[2019-09-27 16:00] VITALS: BP 157/82
[2019-09-27 18:29] VITALS: BP 157/82
[2019-09-27] MEDS ORDERED: FAMOTIDINE 20MG TABLET PO SCH (21:00)
[2019-09-28] MEDS ORDERED: LEVOFLOXACIN 250MG PREMIX 50 ML IV SCH (06:00)
== END 2019-09-27 19:30 | disposition home health service (06) | DRG 74 ==
LOC: ER 15:26 → 5WST 18:40 → EDBEDREQ 18:42 → ENRESERV 09-27 07:48
PROVIDERS: ADMIT Ophthalmology; ATTEND Ophthalmology
DX: G90.8 Other disorders of autonomic nervous system (principal); G93.40 Encephalopathy, unspecified; E11.9 Type 2 diabetes mellitus without complications; F03.90 Unspecified dementia, unspecified severity, without behavioral disturbance, psychotic disturbance, mood disturbance, and anxiety; I11.9 Hypertensive heart disease without heart failure; K80.20 Calculus of gallbladder without cholecystitis without obstruction; D32.0 Benign neoplasm of cerebral meninges; I77.819 Aortic ectasia, unspecified site; Z79.899 Other long term (current) drug therapy; Z87.81 Personal history of (healed) traumatic fracture
CPT/HCPCS: 36415; 71045; 71275; 80053; 83605; 83880; 84484; 85025; 93005; 99285; J1650; J1956; J7030; Q9967